=== PATIENT | male | born 1970 | race Caucasian/White ===

== ENCOUNTER 2017-03-23 21:05 | Emergency (ER) | payer OTHER ==
--- NOTE | 2017-03-24 09:10 | ER ---
ADMIT: 03/23/2017 RM/LOC: ER [facility] MR#: [id number] [facility] [address] [place] [id number] TENZIN DESOUZA [address] [place] [id number] Emergency Room Report SEX: M AGE: 46 : 1970 DATE: 03/23/2017 HISTORY OF PRESENT ILLNESS: The patient is a 46-year-old male, who was in [place], was sent to us from [place] for an ultrasound to rule out torsion. Apparently, he was driving when he suddenly felt his left testicle descend and disappear as he was driving with acute pain. He does not take ibuprofen because it makes him sick, so he did stop at [facility] to get further evaluation and they sent him over to us for diagnostics. He takes duloxetine and has no allergies. PHYSICAL EXAMINATION: GENERAL: Very well-nourished and well-developed male, alert and oriented, very pleasant. at bedside. VITAL SIGNS: Blood pressure 152/94. Afebrile. GENITOURINARY: Left testicle did not look warm or felt warm and it was descended. I did not feel any epididymal tenderness. It was normal examination; however, I went ahead. Because of the pain, I did not palpate too heavily on the left testicle and ordered an ultrasound, which came back stating no torsion. The patient was released with instructions to follow up with Dr. Vaz due to the fact that he has a little bit of microscopic hematuria in the urine. [place] for pain control. No torsion found on ultrasound. Follow up with Dr. Vaz, Urology, within 48 hours, and the prescription was given to him from pharmacy. ELENI Bonilla / Ayan Yee MD / héctor JOB #: [id number] CC: Ayan Yee MD, Attending Physician Tayo Vaz MD, Family Physician
== END 2017-03-23 23:26 | disposition home or self-care (01) ==
LOC: ER 21:05
DX: N50.812 Left testicular pain (principal); R31.29 Other microscopic hematuria; Z88.8 Allergy status to other drugs, medicaments and biological substances; Z79.899 Other long term (current) drug therapy; Z98.890 Other specified postprocedural states